=== PATIENT | female | born 1980 | race Caucasian/White ===

== ENCOUNTER 2021-07-08 09:00 | Outpatient (CLI) | payer OTHER ==
[~2021-07-08 09:00] MED LIST: CELEBREX100 MG PO
== END 2021-07-08 09:15 | disposition home or self-care (01) ==
LOC: PPH VACUNA 09:00
PROVIDERS: ATTEND Emergency Medicine Pediatric Emergency Medicine
DX: Z23 Encounter for immunization (principal)